=== PATIENT | male | born 1980 | race Caucasian/White ===

== ENCOUNTER 2017-02-15 09:35 | Inpatient (IN) | payer MEDICAID ==
[~2017-02-15] VITALS: Ht 165.1 cm; Wt 111.6 kg
--- NOTE | 2017-02-15 10:12 | NUR ---
SPOKE TO MARA STROUD SHE [place] [facility] [place]
--- NOTE | 2017-02-15 10:41 | NUR ---
PXRAY DONE AT BEDSIDE
--- NOTE | 2017-02-15 10:54 | NUR ---
CHAPERONED RECTAL EXAM DONE
[2017-02-15 11:03] LABS: PLATELET COUNT 350 x10^3mcL (130-400)
[2017-02-15 11:09] LABS: CALCIUM 8.2 mg/dL (8.5-10.1); CARBON DIOXIDE 24.3 mmol/L (21-32); CHLORIDE SERUM 107 mmol/L (98-107); CREATININE SERUM 1.6 mg/dL (0.7-1.3); GFR1 52 mL/min; GLUCOSE SERUM 96 mg/dL (74-106); POTASSIUM SERUM 3.7 mmol/L (3.5-5.1); RED CELL DISTRIBUTION WIDTH 20.3 % (11.5-14.5); SODIUM SERUM 141 mmol/L (136-145)
[2017-02-15 11:19] LABS: ALBUMIN 3.6 g/dL (3.4-5.0); ALKALINE PHOSPHATASE 91 U/L (46-116); ALT/SGPT 31 U/L (16-63); AMYLASE 56 U/L (25-115); AST/SGOT 18 U/L (15-37); BILIRUBIN TOTAL 0.4 mg/dL (0.20-1.00); CHOLESTEROL 156 mg/dL (<200); LACTIC DEHYDROGENASE (LDH) 198 U/L (100-190); LIPASE 137 IU/L (73-393); T4(THYROXINE) 8.3 ug/dL (4.7-13.3); TOTAL PROTEIN, SERUM 7.5 g/dL (6.4-8.2)
[2017-02-15 11:22] LABS: CK-MB 3.5 ng/mL (0-3.6)
[2017-02-15 11:23] LABS: HDL CHOLESTEROL 33 mg/dL (40-60)
[2017-02-15 11:25] LABS: UA SPECIFIC GRAVITY >=1.030 (1.005-1.035); microscopic required? YES; urine erythrocyte NEGATIVE (NEGATIVE)
[2017-02-15 12:32] LABS: BAND NEUTROPHIL 3 % (0-10); MONOCYTE 2 % (0-7); SEGMENTED NEUTROPHILS 86 % (37-75)
[2017-02-15 12:33] LABS: rbc morphology (normal/abnorm) ABNORMAL (NORMAL)
[2017-02-15 12:34] LABS: PLATELET MORPHOLOGY PLATELETS NORMAL; ovalocyte/elliptocyte 2+
[2017-02-15] MEDS ORDERED: ASPIR 8181 MG PO (12:46)
--- NOTE | 2017-02-15 12:49 | NUR ---
REPORT GIVEN TO TYRONE
[2017-02-15 12:50] LABS: MAGNESIUM 1.5 mg/dL (1.8-2.4); PHOSPHOROUS 3.2 mg/dL (2.5-4.9)
[2017-02-15 13:01] LABS: FREE T4 0.97 ng/dL (0.76-1.46); FREE THYROXINE INDEX 3.2 ug/dL (1.4-4.5)
[2017-02-15 13:02] LABS: T3 TOTAL 1.34 ng/mL
--- NOTE | 2017-02-15 13:07 | NUR ---
REPORT GIVEN TO TYRONE AT BEDSIDE
--- NOTE | 2017-02-15 13:10 | NUR ---
RECEIVED PATIENT FROM ER. ALERT/ORIENTED X3. ITALIAN SPEAKING MOSTLY. TELE# 9 =SR; HR = 66. DENIED CHEST PAIN. BREATHING SOUND CLEAR CARLOS EDUARDO. O2 SAT 98% ON RA. OBESITY, BUT AMBULATED ON STEADY GAIT. IVHL'D TO LAC. CALL LIGHT IN REACH.
[2017-02-15 13:11] VITALS: BP 157/87
[2017-02-15 13:35] LABS: CHOLESTEROL/HDL RATIO 4.8
--- NOTE | 2017-02-15 15:00 | NUR ---
MAG RIDER 2GM IV STARTED.
[2017-02-15 15:32] LABS: AMPHETAMINE QUAL UR NONE DETECTED (NEG <=1000)
[2017-02-15 15:53] LABS: PLATELET COUNT 349 x10^3mcL (130-400)
[2017-02-15 16:06] LABS: RED CELL DISTRIBUTION WIDTH 20.7 % (11.5-14.5)
[2017-02-15 16:40] LABS: BAND NEUTROPHIL 0 % (0-10); BASOPHIL 0 % (0-2); MONOCYTE 5 % (0-7); SEGMENTED NEUTROPHILS 77 % (37-75); rbc morphology (normal/abnorm) ABNORMAL (NORMAL)
[2017-02-15 16:42] LABS: PLATELET MORPHOLOGY PLATELETS NORMAL; acanthocyte (spur cell) 1+; ovalocyte/elliptocyte 1+; schistocyte (helmet cell) 1+; tear drop cell (dacryocyte) 1+
--- NOTE | 2017-02-15 17:30 | NUR ---
MAG RIDER 2GM IV GIVEN. IVF OF NS 50CC/HR PER ORDER.
[2017-02-15 17:35] VITALS: BP 138/96
--- NOTE | 2017-02-15 17:53 | NUR ---
B/P 138/96; P = 62; VOID [id number] CC OF URINE SINCE ADMISSION. IVF OF NS 100CC/HR PER ORDER. ENDORSED CARE TO NOC NURSE.
[2017-02-15 17:57] LABS: TOTAL IRON BINDING CAPACITY 430 ug/dL (250-450)
[2017-02-15 17:58] LABS: IRON 15 ug/dL (65-170)
[2017-02-15 18:23] LABS: RED BLOOD CELLS 4.63 M/mm3 (4.52-5.90)
--- NOTE | 2017-02-15 19:51 | NUR ---
Awake and verbally responsive. No respiratory distress noted on room air. Denies pain at this time. Normal sinus rhythm. SCD in place. Will cont.to monitor. Call light within reach.
--- NOTE | 2017-02-15 20:30 | NUR ---
TROP LEVEL-0.[address] Dumont. No answer. notified. No new order given at this time.
[2017-02-15 22:06] VITALS: BP 137/87
--- NOTE | 2017-02-16 04:11 | NUR ---
Afebrile. No significant change in condition noted. Denies pain. No SOB noted. No n/v.
[2017-02-16 05:23] VITALS: BP 150/91
[2017-02-16 06:04] LABS: PLATELET COUNT 306 x10^3mcL (130-400)
[2017-02-16 06:11] LABS: CALCIUM 8.2 mg/dL (8.5-10.1); CARBON DIOXIDE 25.6 mmol/L (21-32); CREATININE SERUM 1.5 mg/dL (0.7-1.3); MAGNESIUM 1.8 mg/dL (1.8-2.4); POTASSIUM SERUM 3.7 mmol/L (3.5-5.1)
[2017-02-16 07:35] LABS: RED CELL DISTRIBUTION WIDTH 20.8 % (11.5-14.5)
--- NOTE | 2017-02-16 07:55 | NUR ---
A/O X4. CLEAR SPEECH. FOLLOW COMMANDS. ON TEL 9 SR HR 61. RADIAL AND PEDAL PULSES PALPABLE. <3 SECS CAP REFILL. SCDS IN PLACED. ON RA SAT 99%. BREATHING EVEN AND UNLABORED. NO NVD. VOIDING ADEQUATELY. AMBUALTORY WITH STEADY GAIT. NO SKIN TEAR OR OPEN WOUND. DENIES PAIN AT THIS TIME. IV SITE INTACT ON LAC. NS INFUSING WELL AT 100 ML/HR . WILL CONTINUE TO MONITOR. CALL LIGHT WITHIN REACH.
[2017-02-16 09:00] VITALS: BP 149/88
--- NOTE | 2017-02-16 09:05 | NUR ---
TOOK MEDS WITHOUT DIFFICULTY. WILL CONTINUE TO MONITOR.
[2017-02-16 10:58] LABS: ATYPICAL LYMPH 1 %; BAND NEUTROPHIL 1 % (0-10); BASOPHIL 1 % (0-2); MONOCYTE 5 % (0-7); SEGMENTED NEUTROPHILS 78 % (37-75)
[2017-02-16 11:00] LABS: rbc morphology (normal/abnorm) ABNORMAL (NORMAL); schistocyte (helmet cell) 2+
[2017-02-16 11:01] LABS: PLATELET MORPHOLOGY PT; ovalocyte/elliptocyte 2+
--- NOTE | 2017-02-16 12:49 | NUR ---
RESTING COMFORTABLY. WATCHING TV THIS TIME.. WILL CONTINUE TO MONITOR.
[2017-02-16 13:54] VITALS: BP 146/89
[2017-02-16] MEDS ORDERED: FER300 PO (16:01)
[2017-02-16] MEDS ORDERED: MULTI-VITAMINS1 TAB PO (16:02)
[2017-02-16] MEDS ORDERED: METOPROLOL TART25 M1 PO (16:02)
[2017-02-16] MEDS ORDERED: VITC PO (16:04)
[2017-02-16] MEDS ORDERED: LAC15L PO ×2 (16:04→16:25)
[2017-02-16 17:06] VITALS: BP 146/89
--- NOTE | 2017-02-16 17:30 | NUR ---
SPOKE TO DR LEVIN REGARDING BP 178/112 AND PULSE OF 74. ORDERED TO GIVE HYDRALAZINE. SPOKE TO PHARMACY TO HAVE IT VERIFIED.
--- NOTE | 2017-02-16 17:55 | NUR ---
GIVE IV HYDRALAZINE. WILL RECHECK BP IN 30 MINS.
--- NOTE | 2017-02-16 18:32 | NUR ---
SPOKE TO DR LEVIN REGARDING BP. SEE VS . OK'D TO BE DISCHARGE.
[2017-02-16 18:33] VITALS: BP 156/94
[2017-02-16 18:46] VITALS: BP 178/112
== END 2017-02-16 19:00 | disposition home or self-care (01) | DRG 243 ==
LOC: ED 09:35 → DU 12:13
PROVIDERS: Emergency Medicine; ADMIT Family Medicine
DX: K21.9 Gastro-esophageal reflux disease without esophagitis (principal); N17.0 Acute kidney failure with tubular necrosis; D50.9 Iron deficiency anemia, unspecified; I12.9 Hypertensive chronic kidney disease with stage 1 through stage 4 chronic kidney disease, or unspecified chronic kidney disease; N18.3 Chronic kidney disease, stage 3 (moderate); I16.0 Hypertensive urgency; I51.7 Cardiomegaly; M72.2 Plantar fascial fibromatosis; E72.20 Disorder of urea cycle metabolism, unspecified; E78.5 Hyperlipidemia, unspecified; E66.01 Morbid (severe) obesity due to excess calories; Z68.41 Body mass index [BMI] 40.0-44.9, adult; Z79.82 Long term (current) use of aspirin
CPT/HCPCS: 80307; 82962; 83880; 84439; G0480; J0360; J1940; J3475; J3490; J7030

== ENCOUNTER 2017-04-18 08:27 | Emergency (ER) | payer SELFPAY ==
[~2017-04-18 08:27] MED LIST: ASPIR 8181 MG PO; FER300 PO; LAC15L PO; METOPROLOL TART25 M1 PO; MULTI-VITAMINS1 TAB PO; VITC PO
[2017-04-18 09:35] LABS: BASOPHIL % 0.4 % (0-2); PLATELET COUNT 332 x10^3mcL (130-400)
[2017-04-18 09:39] LABS: UA SPECIFIC GRAVITY 1.015 (1.005-1.035); microscopic required? YES; urine erythrocyte TRACE (NEGATIVE)
[2017-04-18 09:39] LABS: RED CELL DISTRIBUTION WIDTH 22.9 % (11.5-14.5)
[2017-04-18 09:54] LABS: CALCIUM 8.5 mg/dL (8.5-10.1); CARBON DIOXIDE 25.7 mmol/L (21-32); CREATININE SERUM 1.5 mg/dL (0.7-1.3); POTASSIUM SERUM 3.9 mmol/L (3.5-5.1)
[2017-04-18 09:59] LABS: ALBUMIN 3.4 g/dL (3.4-5.0); BILIRUBIN TOTAL 0.27 mg/dL (0.20-1.00); TOTAL PROTEIN, SERUM 7.6 g/dL (6.4-8.2)
[2017-04-18 11:32] VITALS: BP 185/99
== END 2017-04-18 11:32 | disposition home or self-care (01) ==
LOC: ED 08:27
PROVIDERS: Emergency Medicine
DX: R10.9 Unspecified abdominal pain (principal); I10 Essential (primary) hypertension; Z79.899 Other long term (current) drug therapy
CPT/HCPCS: J1885

== ENCOUNTER 2017-04-30 11:54 | Emergency (ER) | payer SELFPAY ==
[2017-04-30 13:05] LABS: BASOPHIL % 0.3 % (0-2); PLATELET COUNT 382 x10^3mcL (130-400)
[2017-04-30 13:11] LABS: CALCIUM 8.4 mg/dL (8.5-10.1); CARBON DIOXIDE 25.7 mmol/L (21-32); CHLORIDE SERUM 108 mmol/L (98-107); CREATININE SERUM 1.4 mg/dL (0.7-1.3); GFR1 > 60 mL/min; GLUCOSE SERUM 102 mg/dL (74-106); POTASSIUM SERUM 3.7 mmol/L (3.5-5.1); RED CELL DISTRIBUTION WIDTH 19.6 % (11.5-14.5); SODIUM SERUM 143 mmol/L (136-145)
[2017-04-30 13:12] LABS: rbc morphology (normal/abnorm) ABNORMAL (NORMAL)
[2017-04-30 13:15] LABS: ALBUMIN 3.5 g/dL (3.4-5.0); ALKALINE PHOSPHATASE 120 U/L (46-116); ALT/SGPT 60 U/L (16-63); AST/SGOT 39 U/L (15-37); BILIRUBIN TOTAL 0.24 mg/dL (0.20-1.00); TOTAL PROTEIN, SERUM 7.9 g/dL (6.4-8.2)
[2017-04-30 16:17] LABS: FREE T4 1.13 ng/dL (0.76-1.46); FREE THYROXINE INDEX 3.3 ug/dL (1.4-4.5); T4(THYROXINE) 9.6 ug/dL (4.7-13.3)
[2017-04-30 17:35] LABS: MAGNESIUM 1.5 mg/dL (1.8-2.4); PHOSPHOROUS 3.5 mg/dL (2.5-4.9)
[2017-04-30 17:37] LABS: CHOLESTEROL/HDL RATIO 5.8
[2017-04-30 17:59] LABS: microscopic required? YES; urine erythrocyte TRACE (NEGATIVE)
[2017-04-30 18:05] LABS: AMPHETAMINE QUAL UR NONE DETECTED (NEG <=1000)
[2017-05-01 12:06] VITALS: BP 158/101
[2017-05-01 14:41] LABS: T3 TOTAL 1.3 ng/mL
== END 2017-05-01 12:06 | disposition home or self-care (01) ==
LOC: ED 11:54
PROVIDERS: Emergency Medicine; Family Medicine
DX: I10 Essential (primary) hypertension (principal); I21.4 Non-ST elevation (NSTEMI) myocardial infarction
CPT/HCPCS: 83880; 84439; J0360; J2060; J3490; J7030; Q0092

== ENCOUNTER 2018-01-24 08:00 | Emergency (ER) | payer SELFPAY ==
[~2018-01-24] VITALS: Ht 167.6 cm; Wt 128.8 kg
[2018-01-24 08:14] VITALS: Ht 167.6 cm; Wt 128.8 kg
[2018-01-24 12:17] VITALS: BP 151/105
== END 2018-01-24 12:17 | disposition home or self-care (01) ==
LOC: ED 08:00
DX: G56.01 Carpal tunnel syndrome, right upper limb (principal); I10 Essential (primary) hypertension; E66.01 Morbid (severe) obesity due to excess calories
CPT/HCPCS: J1100; J1885

== ENCOUNTER 2018-04-09 09:59 | Emergency (ER) | payer MEDICAID ==
[~2018-04-09] VITALS: Ht 167.6 cm; Wt 132.0 kg
[2018-04-09 10:19] VITALS: Ht 167.6 cm; Wt 132.0 kg
[2018-04-09 10:47] VITALS: BP 185/104
== END 2018-04-09 10:47 | disposition home or self-care (01) ==
LOC: ED 09:59
DX: H65.91 Unspecified nonsuppurative otitis media, right ear (principal); I10 Essential (primary) hypertension

== ENCOUNTER 2018-05-16 20:05 | Emergency (ER) | payer MEDICAID ==
[~2018-05-16] VITALS: Ht 162.6 cm; Wt 132.0 kg
[2018-05-16 20:13] VITALS: Ht 162.6 cm; Wt 132.0 kg
[2018-05-16 22:00] VITALS: BP 167/104
== END 2018-05-16 22:00 | disposition home or self-care (01) ==
LOC: ED 20:05
DX: S05.01XA Injury of conjunctiva and corneal abrasion without foreign body, right eye, initial encounter (principal); I10 Essential (primary) hypertension; W22.8XXA Striking against or struck by other objects, initial encounter; Y93.89 Activity, other specified; Y92.89 Other specified places as the place of occurrence of the external cause; Y99.8 Other external cause status

== ENCOUNTER 2019-10-09 09:49 | Emergency (ER) | payer MEDICAID ==
[~2019-10-09] VITALS: Ht 167.6 cm; Wt 122.5 kg
[2019-10-09 10:52] LABS: BASOPHIL % 0 % (0-2); PLATELET COUNT 393 x10^3mcL (130-400); RED CELL DISTRIBUTION WIDTH 19.3 % (11.5-14.5)
[2019-10-09 10:59] LABS: CALCIUM 8.3 mg/dL (8.5-10.1); CARBON DIOXIDE 24.9 mmol/L (21-32); CREATININE SERUM 1.7 mg/dL (0.7-1.3); POTASSIUM SERUM 3.6 mmol/L (3.5-5.1)
[2019-10-09 11:06] LABS: BILIRUBIN TOTAL 0.3 mg/dL (0.20-1.00); TOTAL PROTEIN, SERUM 7.6 g/dL (6.4-8.2)
[2019-10-09 11:09] LABS: ALBUMIN 3.1 g/dL (3.4-5.0)
[2019-10-09 12:04] VITALS: BP 165/92
== END 2019-10-09 12:04 | disposition home or self-care (01) ==
LOC: ED 09:49
PROVIDERS: Emergency Medicine
DX: R10.31 Right lower quadrant pain (principal); I10 Essential (primary) hypertension
CPT/HCPCS: 36415; J1885

== ENCOUNTER 2019-10-28 17:28 | Emergency (ER) | payer MEDICAID ==
[~2019-10-28] VITALS: Ht 172.7 cm; Wt 131.1 kg
[2019-10-28 18:55] VITALS: BP 171/106
== END 2019-10-28 19:47 | disposition home or self-care (01) ==
LOC: ED 17:28
DX: M54.41 Lumbago with sciatica, right side (principal); I10 Essential (primary) hypertension; E66.9 Obesity, unspecified; Z86.2 Personal history of diseases of the blood and blood-forming organs and certain disorders involving the immune mechanism
CPT/HCPCS: J1885